=== PATIENT | male | born 1950 | race Caucasian/White ===

== ENCOUNTER 2018-03-07 14:42 | Emergency (ER) | payer MEDICARE ==
[~2018-03-07] VITALS: Ht 177.8 cm; Wt 84.1 kg
[2018-03-07 14:46] VITALS: Ht 177.8 cm; Wt 84.1 kg
[2018-03-07] MEDS ORDERED: DIFLUCAN200 MG PO (15:55)
[2018-03-07] MEDS ORDERED: VISTARIL25 MG PO (15:56)
[2018-03-07] MEDS ORDERED: BP MEDICATION (16:06)
[2018-03-07] MEDS ORDERED: POTASSIUM99 M1 (16:06)
[2018-03-07 16:08] LABS: BASOPHILS 0.2 % (0-2); EOSINOPHILS 2.3 % (0-7); HEMATOCRIT 45.1 % (42.0-54.0); HEMOGLOBIN 16.2 g/dL (13.5-17.5); IMMATURE GRANULOCYTES 0.3 % (0-5); LYMPHOCYTES 17.3 % (15-50); MCH 32.9 pg (26.0-34.0); MCHC 35.9 g/dL (31.0-37.0); MCV 91.7 fL (80.0-100.0); MEAN PLATELET VOLUME 10.3 fL (7.4-10.4); MONOCYTES 8.6 % (2-11); NEUTROPHILS 71.3 % (40-80); PLATELET COUNT 198 10x3/uL (130-400); RBC 4.92 10x6/uL (4.20-6.10); RDW 12.9 % (11.5-14.5); WBC 12.6 10x3/uL (4.8-10.8)
[2018-03-07 16:37] LABS: ALBUMIN 3.3 g/dL (3.4-5.0); ALKALINE PHOSPHATASE 73 U/L (46-116); ALT (SGPT) 36 U/L (10-68); BILIRUBIN - TOTAL 0.71 mg/dL (0.2-1.3); CALC OSMOLALITY 285 mosm/kg (275-300); CALCIUM 9.1 mg/dL (8.5-10.1); CARBON DIOXIDE 26.8 mmol/L (21.0-32.0); CHLORIDE - SERUM 105 mmol/L (98-107); CREATININE - SERUM 0.9 mg/dL (0.6-1.3); GLUCOSE 101 mg/dL (74-106); POTASSIUM - SERUM 3.4 mmol/L (3.5-5.1); SODIUM 143 mmol/L (136-145); UREA NITROGEN 16 mg/dL (7-18); eGFR NON AFRICAN AMERICAN 89 mL/min (90-120)
[2018-03-07 17:13] VITALS: BP 160/77
== END 2018-03-07 17:18 | disposition home or self-care (01) ==
LOC: D.ER 14:42 → EDBD 14:42 → D.ER 17:18
PROVIDERS: Emergency Medicine
DX: B35.4 Tinea corporis (principal); L29.9 Pruritus, unspecified; R21 Rash and other nonspecific skin eruption; I10 Essential (primary) hypertension; F17.200 Nicotine dependence, unspecified, uncomplicated

== ENCOUNTER 2018-07-23 15:28 | Inpatient (IN) | payer MEDICARE ==
[~2018-07-23] VITALS: Ht 180.3 cm; Wt 76.4 kg
[~2018-07-23 15:28] MED LIST: BP MEDICATION; DIFLUCAN200 MG PO; POTASSIUM99 M1; VISTARIL25 MG PO
[2018-07-23 17:05] LABS: HEMATOCRIT 45.4 % (42.0-54.0); HEMOGLOBIN 16.2 g/dL (13.5-17.5); MCH 32.9 pg (26.0-34.0); MCHC 35.7 g/dL (31.0-37.0); MCV 92.3 fL (80.0-100.0); MEAN PLATELET VOLUME 10.6 fL (7.4-10.4); PLATELET COUNT 220 10x3/uL (130-400); RBC 4.92 10x6/uL (4.20-6.10); RDW 12.8 % (11.5-14.5); WBC 20.8 10x3/uL (4.8-10.8)
[2018-07-23 17:12] LABS: ALBUMIN 3.4 g/dL (3.4-5.0); ALKALINE PHOSPHATASE 81 U/L (46-116); ALT (SGPT) 18 U/L (10-68); BILIRUBIN - TOTAL 1.61 mg/dL (0.2-1.3); CALC OSMOLALITY 284 mosm/kg (275-300); CALCIUM 9.9 mg/dL (8.5-10.1); CARBON DIOXIDE 26.7 mmol/L (21.0-32.0); CHLORIDE - SERUM 99 mmol/L (98-107); CREATININE - SERUM 1.5 mg/dL (0.6-1.3); PROTEIN - SERUM 8.1 g/dL (6.4-8.2); SODIUM 136 mmol/L (136-145); UREA NITROGEN 37 mg/dL (7-18); eGFR NON AFRICAN AMERICAN 49 mL/min (90-120)
[2018-07-23 17:15] LABS: AMYLASE - SERUM 21 U/L (25-115); LIPASE 71 U/L (73-393); TROPONIN-I < 0.017 ng/mL (0.000-0.060)
[2018-07-23 17:18] LABS: GLUCOSE 172 mg/dL (74-106)
[2018-07-23 17:19] LABS: APPEARANCE HAZY (CLEAR); BILIRUBIN NEGATIVE (NEGATIVE); COLOR DK YELLOW (YELLOW); GLUCOSE NEGATIVE (NEGATIVE); KETONE NEGATIVE (NEGATIVE); NITRITE POSITIVE (NEGATIVE); PROTEIN 1+ mg/dL (NEGATIVE); UROBILINOGEN NORMAL (NORMAL)
[2018-07-23 17:22] LABS: BACTERIA MANY /hpf (NONE SEEN); RED CELLS - URINE 0-5 /hpf (0-5); WHITE CELLS - URINE 25-50 /hpf (0-5)
[2018-07-23 17:31] VITALS: BP 136/79
[2018-07-23 17:45] LABS: LYMPHOCYTES 5 % (15-50); MONOCYTES 3 % (2-11); NEUTROPHILS 91 % (40-80); PLATELET ESTIMATE NORMAL
[2018-07-23 18:58] VITALS: BP 143/82
[2018-07-23 23:43] VITALS: BP 124/82; BMI 23.4
[2018-07-24] VITALS: BP 101/41
[2018-07-24 04:00] VITALS: BP 86/47
[2018-07-24 06:54] LABS: BASOPHILS 0 % (0-2); EOSINOPHILS 0 % (0-7); HEMATOCRIT 41.1 % (42.0-54.0); HEMOGLOBIN 14.4 g/dL (13.5-17.5); IMMATURE GRANULOCYTES 0.4 % (0-5); LYMPHOCYTES 5.3 % (15-50); MCH 32.7 pg (26.0-34.0); MCV 93.4 fL (80.0-100.0); MONOCYTES 7.3 % (2-11); PLATELET COUNT 176 10x3/uL (130-400); RDW 12.9 % (11.5-14.5); WBC 20.2 10x3/uL (4.8-10.8)
[2018-07-24 07:06] LABS: ALBUMIN 2.6 g/dL (3.4-5.0); ANION GAP 15.9 mmol/L (8-16); BILIRUBIN - TOTAL 1.35 mg/dL (0.2-1.3); CALCIUM 8.8 mg/dL (8.5-10.1); CARBON DIOXIDE 24.2 mmol/L (21.0-32.0); CREATININE - SERUM 1.5 mg/dL (0.6-1.3); POTASSIUM - SERUM 4.1 mmol/L (3.5-5.1); PROTEIN - SERUM 6.9 g/dL (6.4-8.2)
[2018-07-24 08:09] VITALS: BP 124/74
[2018-07-24 12:12] VITALS: BP 130/80
[2018-07-24 16:22] VITALS: BP 150/79
[2018-07-24 20:00] VITALS: BP 129/84
[2018-07-25] VITALS: BP 130/71
[2018-07-25 04:00] VITALS: BP 121/58
[2018-07-25 07:09] LABS: BASOPHILS 0.1 % (0-2); EOSINOPHILS 0.7 % (0-7); HEMATOCRIT 39.3 % (42.0-54.0); HEMOGLOBIN 13.9 g/dL (13.5-17.5); IMMATURE GRANULOCYTES 0.3 % (0-5); MCH 32.9 pg (26.0-34.0); MCHC 35.4 g/dL (31.0-37.0); MCV 93.1 fL (80.0-100.0); MEAN PLATELET VOLUME 10.8 fL (7.4-10.4); NEUTROPHILS 85.9 % (40-80); PLATELET COUNT 161 10x3/uL (130-400); RBC 4.22 10x6/uL (4.20-6.10)
[2018-07-25 07:11] LABS: WBC 11.6 10x3/uL (4.8-10.8)
[2018-07-25 08:34] LABS: ANION GAP 16.5 mmol/L (8-16); CALCIUM 8.7 mg/dL (8.5-10.1); CARBON DIOXIDE 19.9 mmol/L (21.0-32.0)
[2018-07-25 08:49] LABS: CREATININE - SERUM 1.1 mg/dL (0.6-1.3); POTASSIUM - SERUM 3.4 mmol/L (3.5-5.1)
[2018-07-25 09:25] VITALS: BP 150/80
[2018-07-25 12:08] VITALS: Ht 180.3 cm; Wt 76.4 kg
[2018-07-25 13:00] VITALS: BP 141/85
[2018-07-25 18:20] VITALS: BP 161/91
[2018-07-25 20:00] VITALS: BP 144/83
[2018-07-26] VITALS: BP 118/64
[2018-07-26 04:00] VITALS: BP 149/84
[2018-07-26 07:07] LABS: BASOPHILS 0.1 % (0-2); EOSINOPHILS 1.7 % (0-7); HEMATOCRIT 43.5 % (42.0-54.0); HEMOGLOBIN 15.7 g/dL (13.5-17.5); IMMATURE GRANULOCYTES 0.3 % (0-5); LYMPHOCYTES 7.5 % (15-50); MCHC 36.1 g/dL (31.0-37.0); MCV 91.4 fL (80.0-100.0); MEAN PLATELET VOLUME 11.4 fL (7.4-10.4); MONOCYTES 7.5 % (2-11); NEUTROPHILS 82.9 % (40-80); PLATELET COUNT 152 10x3/uL (130-400); RBC 4.76 10x6/uL (4.20-6.10); RDW 12.5 % (11.5-14.5)
[2018-07-26 07:26] LABS: WBC 7.7 10x3/uL (4.8-10.8)
[2018-07-26 07:27] LABS: ANION GAP 15.5 mmol/L (8-16); CALCIUM 9.2 mg/dL (8.5-10.1); CARBON DIOXIDE 21.8 mmol/L (21.0-32.0); CREATININE - SERUM 1.1 mg/dL (0.6-1.3); POTASSIUM - SERUM 3.3 mmol/L (3.5-5.1)
[2018-07-26 08:45] VITALS: BP 125/46
[2018-07-26 13:02] VITALS: BP 130/58
[2018-07-26 16:56] VITALS: BP 151/58
[2018-07-26 20:00] VITALS: BP 161/92
[2018-07-27] VITALS: BP 144/61
[2018-07-27 04:00] VITALS: BP 160/66
[2018-07-27 05:25] LABS: BASOPHILS 0.2 % (0-2); EOSINOPHILS 2.6 % (0-7); HEMATOCRIT 38.7 % (42.0-54.0); HEMOGLOBIN 13.8 g/dL (13.5-17.5); IMMATURE GRANULOCYTES 0.5 % (0-5); LYMPHOCYTES 9.9 % (15-50); MCH 32.3 pg (26.0-34.0); MCHC 35.7 g/dL (31.0-37.0); MCV 90.6 fL (80.0-100.0); MEAN PLATELET VOLUME 11.1 fL (7.4-10.4); MONOCYTES 11.3 % (2-11); NEUTROPHILS 75.5 % (40-80); PLATELET COUNT 155 10x3/uL (130-400); RBC 4.27 10x6/uL (4.20-6.10); RDW 12.4 % (11.5-14.5); WBC 8.2 10x3/uL (4.8-10.8)
[2018-07-27 05:53] LABS: CALC OSMOLALITY 279 mosm/kg (275-300); CALCIUM 8.5 mg/dL (8.5-10.1); CARBON DIOXIDE 23.8 mmol/L (21.0-32.0); CHLORIDE - SERUM 105 mmol/L (98-107); GLUCOSE 80 mg/dL (74-106); SODIUM 140 mmol/L (136-145); UREA NITROGEN 17 mg/dL (7-18); eGFR NON AFRICAN AMERICAN 79 mL/min (90-120)
[2018-07-27 05:54] LABS: POTASSIUM - SERUM 3.3 mmol/L (3.5-5.1)
[2018-07-27 08:23] VITALS: BP 129/81
[2018-07-27 11:58] VITALS: BP 133/73
--- NOTE | 2018-07-27 12:25 | MORECARE ---
CASE MANAGEMENT DISCHARGE SUMMARY PATIENT: SHAKIR ROSALES UNIT: [id number] ADM DATE: 07/23/18 AGE: 68 : 50 SEX: M ROOM/BED: D.2223 AUTHOR: DOREEN PATTERSON PHYSICIAN: REFERRING PHYSICIAN: TONE RICHARDSON MD DATE OF SERVICE: 07/27/18 Discharge Plan Patient Name: SHAKIR ROSALES Facility: [facility]:[place] : 1950 Planned Disposition: Home with Home Health Anticipated Discharge Date: Discharge Date: Expected LOS: Initial Reviewer: [email or web address] Initial Review Date: 07/27/2018 Generated: 07/27/18 1:25 pm DCPIA - Discharge Planning Initial Assessment Updated by [email or web address]: Fela Arriaga on 07/27/18 12:25 pm * Is the patient Alert and Oriented? Yes * How many steps to enter\exit or inside your home? 0/0 * [facility] [place] * [facility]acy [facility] from the [facility] * Preadmission Environment Home Alone * ADLs Partial Dependent * Partial ADLs (Assistance needed) Ambulation * Equipment Bedside Commode Other Shower Chair * Other Equipment Electric wheelchair * List name and contact numbers for known caregivers / representatives who currently or will assist patient after discharge: Donovan Gilliam - ex erqs - [phone] * Verbal permission to speak to the caregivers and representatives has been obtained from the patient. Yes * Community resources currently utilized [facility] Services * Please name any agencies selected above. [place] * Additional services required to return to the preadmission environment? No * Can the patient safely return to the preadmission environment? Yes * Has this patient been hospitalized within the prior 30 days at any hospital? No External Providers External Provider: OTHER-OTHER Next Contact Date: Service Request Date: Service Type: Resolution: Reviewer: Comments: Patient Name: SHAKIR ROSALES Page 64928 at 1225 All edits/amendments must be made on the electronic document DICTATION DATE: 07/27/18 1225 GEOTECHNICAL LABORATORY TECHNICIAN: NILE 07/27/18 1225 RPT#: [id number] DC DATE: STATUS: ADM IN [facility] [address] [place] [address] END OF REPORT
--- NOTE | 2018-07-27 12:33 | MORECARE ---
CASE MANAGEMENT DISCHARGE SUMMARY PATIENT: SHAKIR ROSALES UNIT: [id number] ADM DATE: 07/23/18 AGE: 68 : 50 SEX: M ROOM/BED: D.2223 AUTHOR: YESENIADOC PHYSICIAN: REFERRING PHYSICIAN: TONE RICHARDSON MD DATE OF SERVICE: 07/27/18 Discharge Plan Patient Name: SHAKIR ROSALES Facility: [facility]:[place] : 1950 Planned Disposition: Home with Home Health Anticipated Discharge Date: Discharge Date: Expected LOS: Initial Reviewer: [email or web address] Initial Review Date: 07/27/2018 Generated: 07/27/18 1:32 pm Comments DCP- Discharge Planning Updated by [email or web address]: Fela Arriaga on 07/27/18 11:[address] Patient Name: SHAKIR ROSALES Admission Status: ER Accout number: [id number] Admission Date: 07-23-2018 : 1950 Admission Diagnosis:SEPSIS, UNSPECIFIED ORGANISM Attending: TONE RICHARDSON Current LOS: 4 Anticipated DC Date: Planned Disposition: Home with Home Health Primary Insurance: [employer] MEDICARE ADV Discharge Planning Comments: CM met with patient to complete initial dc planning assessment. CM educated patient on the CM role and verbal consent given by patient to complete assessment. Patient lives alone at [facility]. At discharge patient plans to return and feels this is a safe discharge. CM discussed availability of home health, rehab services, and medical equipment. Patient states he would like to have home health. He states he only uses [facility] as his primary care doctor. I called the [facility] child nutrition manager and spoke to Shirin and informed her of his admission. I also called and spoke to Dayday at the [facility] clinic and clinical faxed to [phone] for home health. He states his ex will take him home on discharge. CM will continue to follow and will assist as needed with dc plans/needs. Marketing Admin: Fela Arriaga DCPIA - Discharge Planning Initial Assessment Updated by [email or web address]: Fela Arriaga on 07/27/18 12:25 pm * Is the patient Alert and Oriented? Yes * How many steps to enter\exit or inside your home? 0/0 * PCP [facility] clinic in [place] * Pharmacy States he gets [facility] medicine from the [facility] * Preadmission Environment Home Alone * ADLs Partial Dependent * Partial ADLs (Assistance needed) Ambulation * Equipment Bedside Commode Other Shower Chair * Other Equipment Electric wheelchair * List name and contact numbers for known caregivers / representatives who currently or will assist patient after discharge: Donovan Gilliam - ex - [phone] * Verbal permission to speak to the caregivers and representatives has been obtained from the patient. Yes * Community resources currently utilized [place] Services * Please name any agencies selected above. [place] * Additional services required to return to the preadmission environment? No * Can the patient safely return to the preadmission environment? Yes * Has this patient been hospitalized within the prior 30 days at any hospital? No Last DP export: 07/27/18 11:25 a Patient Name: SHAKIR ROSALES Page 98842 at 1233 All edits/amendments must be made on the electronic document DICTATION DATE: 07/27/18 1232 CYBER DEFENSE ANALYST: NILE 07/27/18 1232 RPT#: [id number] DC DATE: STATUS: ADM IN [facility] [address] [place] [address] END OF REPORT
--- NOTE | 2018-07-27 15:24 | MORECARE ---
CASE MANAGEMENT DISCHARGE SUMMARY PATIENT: SHAKIR ROSALES UNIT: [id number] ADM DATE: 07/23/18 AGE: 68 : 50 SEX: M ROOM/BED: D.2223 AUTHOR: YESENIADOC PHYSICIAN: REFERRING PHYSICIAN: TONE RICHARDSON MD DATE OF SERVICE: 07/27/18 Discharge Plan Patient Name: SHAKIR ROSALES Facility: [facility]:[place] : 1950 Planned Disposition: Home with Home Health Anticipated Discharge Date: Discharge Date: Expected LOS: Initial Reviewer: [email or web address] Initial Review Date: 07/27/2018 Generated: 07/27/18 4:23 pm Comments DCP- Discharge Planning Updated by [email or web address]: Fela Arriaga on 07/27/18 2:[address] I spoke with Pat with the [facility] clinic and she states that she will need a Rx faxed to her on whatever new meds he will need on discharge. She states she will give clinical to the SOAP MIXER that he sees to see if they can have home health visit him. I spoke with Dr. Berrios and informed him that we would need a hand written Rx for whatever new meds he is going home on to fax to [facility]. CM will continue to follow and assist with discharge planning/needs. DCP- Discharge Planning Updated by [email or web address]: Fela Arriaga on 07/27/18 11:[address] Patient Name: SHAKIR ROSALES Admission Status: ER Accout number: [id number] Admission Date: 07-23-2018 : 1950 Admission Diagnosis:SEPSIS, UNSPECIFIED ORGANISM Attending: TONE RICHARDSON Current LOS: 4 Anticipated DC Date: Planned Disposition: Home with Home Health Primary Insurance: [employer] MEDICARE ADV Discharge Planning Comments: CM met with patient to complete initial dc planning assessment. CM educated patient on the CM role and verbal consent given by patient to complete assessment. Patient lives alone at [facility]. At discharge patient plans to return and feels this is a safe discharge. CM discussed availability of home health, rehab services, and medical equipment. Patient states he would like to have home health. [facility]. I called the [facility] event planning manager and spoke to Shirin and informed her of his admission. I also called and spoke to Dayday at the [facility] clinic and clinical faxed to [phone] for home health. He states his ex will take him home on discharge. CM will continue to follow and will assist as needed with dc plans/needs. Receiving Barn Custodian: Felaivelisse Arriaga DCPIA - Discharge Planning Initial Assessment Updated by [id number]: Fela Arriaga on 07/27/18 12:25 pm * Is the patient Alert and Oriented? Yes * How many steps to enter\exit or inside your home? 0/0 * PCP [facility] clinic in [place] * Pharmacy States he gets [facility] medicine from the [facility] * Preadmission Environment Home Alone * ADLs Partial Dependent * Partial ADLs (Assistance needed) Ambulation * Equipment Bedside Commode Other Shower Chair * Other Equipment Electric wheelchair * List name and contact numbers for known caregivers / representatives who currently or will assist patient after discharge: Donovan Gilliam - ex - [phone] * Verbal permission to speak to the caregivers and representatives has been obtained from the patient. Yes * Community resources currently utilized [facility] Services * Please name any agencies selected above. [place] * Additional services required to return to the preadmission environment? No * Can the patient safely return to the preadmission environment? Yes * Has this patient been hospitalized within the prior 30 days at any hospital? No Last DP export: 07/27/18 11:33 a Patient Name: SHAKIR ROSALES Page 03072 at 1524 All edits/amendments must be made on the electronic document DICTATION DATE: 07/27/18 152 AREA FORESTER: NILE 07/27/18 152 RPT#: [id number] DC DATE: STATUS: ADM IN [facility] [address] [place] [address] END OF REPORT
[2018-07-27 16:43] VITALS: BP 153/86
[2018-07-27 20:00] VITALS: BP 156/79
[2018-07-28] VITALS: BP 145/72
[2018-07-28 04:00] VITALS: BP 164/73
[2018-07-28 06:52] LABS: BASOPHILS 0.2 % (0-2); EOSINOPHILS 2.5 % (0-7); HEMATOCRIT 37.7 % (42.0-54.0); HEMOGLOBIN 13.8 g/dL (13.5-17.5); IMMATURE GRANULOCYTES 0.4 % (0-5); LYMPHOCYTES 11.8 % (15-50); MCH 33.1 pg (26.0-34.0); MCHC 36.6 g/dL (31.0-37.0); MCV 90.4 fL (80.0-100.0); MEAN PLATELET VOLUME 11.4 fL (7.4-10.4); MONOCYTES 8.6 % (2-11); NEUTROPHILS 76.5 % (40-80); RBC 4.17 10x6/uL (4.20-6.10); RDW 12.5 % (11.5-14.5); WBC 9.6 10x3/uL (4.8-10.8)
[2018-07-28 06:54] LABS: CALC OSMOLALITY 282 mosm/kg (275-300); CALCIUM 8.9 mg/dL (8.5-10.1); CARBON DIOXIDE 23.6 mmol/L (21.0-32.0); CHLORIDE - SERUM 106 mmol/L (98-107); CREATININE - SERUM 0.9 mg/dL (0.6-1.3); GLUCOSE 101 mg/dL (74-106); POTASSIUM - SERUM 3.3 mmol/L (3.5-5.1); SODIUM 141 mmol/L (136-145); UREA NITROGEN 18 mg/dL (7-18); eGFR NON AFRICAN AMERICAN 89 mL/min (90-120)
[2018-07-28 07:04] LABS: PLATELET COUNT 189 10x3/uL (130-400)
--- NOTE | 2018-07-28 09:19 | MORECARE ---
CASE MANAGEMENT DISCHARGE SUMMARY PATIENT: SHAKIR ROSALES UNIT: [id number] ADM DATE: 07/23/18 AGE: 68 : 50 SEX: M ROOM/BED: D.2223 AUTHOR: YESENIADOC PHYSICIAN: REFERRING PHYSICIAN: TONE RICHARDSON MD DATE OF SERVICE: 07/28/18 Discharge Plan Patient Name: SHAKIR ROSALES Facility: [facility]:[place] : 1950 Planned Disposition: Home with Home Health Anticipated Discharge Date: Discharge Date: Expected LOS: Initial Reviewer: [email or web address] Initial Review Date: 07/27/2018 Generated: 07/28/18 10:19 am Comments DCP- Discharge Planning Updated by [email or web address]: Fela Arriaga on 07/28/18 8:[address] Received a call from Pat at the DC that "Miss Esquivel" will not order Home Health until the patient is seen in the DC clinic on follow up. CM will continue to follow and assist with discharge planning/needs. DCP- Discharge Planning Updated by [email or web address]: Fela Bart on 07/27/18 2:[address] I spoke with Pat with the [facility] clinic and she states that she will need a Rx faxed to her on whatever new meds he will need on discharge. She states she will give clinical to the PODIATRY ASSISTANT that he sees to see if they can have home health visit him. I spoke with Dr. Berrios and informed him that we would need a hand written Rx for whatever new meds he is going home on to fax to [facility]. CM will continue to follow and assist with discharge planning/needs. DCP- Discharge Planning Updated by [email or web address]: Fela Arriaga on 07/27/18 11:[address] Patient Name: SHAKIR ROSALES Admission Status: ER Accout number: [id number] Admission Date: 07-23-2018 : 1950 Admission Diagnosis:SEPSIS, UNSPECIFIED ORGANISM Attending: TONE RICHARDSON Current LOS: 4 Anticipated DC Date: Planned Disposition: Home with Home Health Primary Insurance: [employer] MEDICARE ADV Discharge Planning Comments: CM met with patient to complete initial dc planning assessment. CM educated patient on the CM role and verbal consent given by patient to complete assessment. Patient lives alone at [facility]. At discharge patient plans to return and feels this is a safe discharge. CM discussed availability of home health, rehab services, and medical equipment. Patient states he would like to have home health. [facility]. I called the VA slate splitter and spoke to Shirin and informed her of his admission. I also called and spoke to Dayday at the [facility] clinic and clinical faxed to [phone] for home health. He states his ex will take him home on discharge. CM will continue to follow and will assist as needed with dc plans/needs. Research Aide: Fela Arriaga DCPIA - Discharge Planning Initial Assessment Updated by [email or web address]: Fela Arriaga on 07/27/18 12:25 pm * Is the patient Alert and Oriented? Yes * How many steps to enter\\exit or inside your home? 0/0 * PCP [facility] clinic in [place] * Pharmacy States he gets [facility] medicine from the [facility] * Preadmission Environment Home Alone * ADLs Partial Dependent * Partial ADLs (Assistance needed) Ambulation * Equipment Bedside Commode Other Shower Chair * Other Equipment Electric wheelchair * List name and contact numbers for known caregivers / representatives who currently or will assist patient after discharge: Donovan Gilliam - ex - [phone] * Verbal permission to speak to the caregivers and representatives has been obtained from the patient. Yes * Community resources currently utilized [facility] Services * Please name any agencies selected above. [place] * Additional services required to return to the preadmission environment? No * Can the patient safely return to the preadmission environment? Yes * Has this patient been hospitalized within the prior 30 days at any hospital? No Last DP export: 07/27/18 2:23 p Patient Name: SHAKIR ROSALES Page 12284 at 0919 All edits/amendments must be made on the electronic document DICTATION DATE: 07/28/18917 INSURANCE VERIFY REP: NILE 07/28/18917 RPT#: [id number] DC DATE: STATUS: ADM IN [facility] [address] [place] [address] END OF REPORT
[2018-07-28 09:44] VITALS: BP 150/69
[2018-07-28 12:00] VITALS: BP 132/75
[2018-07-28 18:35] VITALS: BP 150/73
[2018-07-28 20:00] VITALS: BP 155/75
[2018-07-29 05:48] LABS: BASOPHILS 0.4 % (0-2); EOSINOPHILS 4.7 % (0-7); HEMATOCRIT 37.4 % (42.0-54.0); HEMOGLOBIN 13.4 g/dL (13.5-17.5); IMMATURE GRANULOCYTES 0.6 % (0-5); LYMPHOCYTES 20.7 % (15-50); MCH 32.4 pg (26.0-34.0); MCHC 35.8 g/dL (31.0-37.0); MCV 90.6 fL (80.0-100.0); MEAN PLATELET VOLUME 10.7 fL (7.4-10.4); NEUTROPHILS 65.6 % (40-80); PLATELET COUNT 196 10x3/uL (130-400); RBC 4.13 10x6/uL (4.20-6.10); RDW 12.6 % (11.5-14.5); WBC 8.5 10x3/uL (4.8-10.8)
[2018-07-29 06:44] LABS: CALC OSMOLALITY 285 mosm/kg (275-300); CALCIUM 8.6 mg/dL (8.5-10.1); CARBON DIOXIDE 22.3 mmol/L (21.0-32.0); CHLORIDE - SERUM 108 mmol/L (98-107); CREATININE - SERUM 0.9 mg/dL (0.6-1.3); GLUCOSE 96 mg/dL (74-106); POTASSIUM - SERUM 3.4 mmol/L (3.5-5.1); SODIUM 142 mmol/L (136-145); UREA NITROGEN 21 mg/dL (7-18); eGFR NON AFRICAN AMERICAN 89 mL/min (90-120)
[2018-07-29 09:38] VITALS: BP 161/85
[2018-07-29] MEDS ORDERED: OMNICEF300 MG PO (11:50)
--- NOTE | 2018-07-29 12:35 | MORECARE ---
CASE MANAGEMENT DISCHARGE SUMMARY PATIENT: SHAKIR ROSALES UNIT: [id number] ADM DATE: 07/23/18 AGE: 68 : 50 SEX: M ROOM/BED: D.2223 AUTHOR: YESENIA,DOC PHYSICIAN: REFERRING PHYSICIAN: TONE RICHARDSON MD DATE OF SERVICE: 07/29/18 Discharge Plan Patient Name: SHAKIR ROSALES Facility: [facility]:[place] : 1950 Planned Disposition: Home with Home Health Anticipated Discharge Date: Discharge Date: Expected LOS: Initial Reviewer: [email or web address] Initial Review Date: 07/27/2018 Generated: 07/29/18 1:35 pm Comments DCP- Discharge Planning Updated by [email or web address]: Fela Bart on 07/29/18 11:[address] Received the Rx for Cefdinir for home and copy faxed to the VA. I called the [facility] and spoke to Meryl and told her that I have faxed his RX and anticipating discharge today. I also faxed updated progress notes. Meryl states she will have the care team return my call if the Rx is approved. I priced the med at [place] and it will cost 20 dollars and 49 cents. I have emailed Elsa Shen for approval if [place] does not approve med. CM will continue to follow and assist with discharge planning/needs. DCP- Discharge Planning Updated by [email or web address]: Fela Bart on 07/28/18 8:[address] Received a call from Pat at the [facility] that "Miss Esquivel" will not order Home Health until the patient is seen in the [facility] clinic on follow up. CM will continue to follow and assist with discharge planning/needs. DCP- Discharge Planning Updated by [email or web address]: Feal Astorgajose on 07/27/18 2:[address] I spoke with Pat with the [facility] clinic and she states that she will need a Rx faxed to her on whatever new meds he will need on discharge. She states she will give clinical to the DIMENSIONAL ENGINEER that he sees to see if they can have home health visit him. I spoke with Dr. Berrios and informed him that we would need a hand written Rx for whatever new meds he is going home on to fax to [place]. CM will continue to follow and assist with discharge planning/needs. DCP- Discharge Planning Updated by [email or web address]: Fela Arriaga on 07/27/18 11:[address] Patient Name: SHAKIR ROSALES Admission Status: ER Accout number: [id number] Admission Date: 07-23-2018 : 1950 Admission Diagnosis:SEPSIS, UNSPECIFIED ORGANISM Attending: TONE RICHARDSON Current LOS: 4 Anticipated DC Date: Planned Disposition: Home with Home Health Primary Insurance: [employer] MEDICARE ADV Discharge Planning Comments: CM met with patient to complete initial dc planning assessment. CM educated patient on the CM role and verbal consent given by patient to complete assessment. Patient lives alone at [facility]. At discharge patient plans to return and feels this is a safe discharge. CM discussed availability of home health, rehab services, and medical equipment. Patient states he would like to have home health. He [facility]. I called the [facility] senior android software engineer and spoke to Shirin and informed her of his admission. I also called and spoke to Dayday at the [facility] clinic and clinical faxed to [phone] for home health. He states his ex will take him home on discharge. CM will continue to follow and will assist as needed with dc plans/needs. Guitar Teacher: Fela Arriaga DCPIA - Discharge Planning Initial Assessment Updated by [email or web address]: Fela Arriaga on 07/27/18 12:25 pm * Is the patient Alert and Oriented? Yes * How many steps to enter\\exit or inside your home? 0/0 * PCP [facility] clinic in [place] * Pharmacy States he gets all medicine from the [facility] * Preadmission Environment Home Alone * ADLs Partial Dependent * Partial ADLs (Assistance needed) Ambulation * Equipment Bedside Commode Other Shower Chair * Other Equipment Electric wheelchair * List name and contact numbers for known caregivers / representatives who currently or will assist patient after discharge: Donovan Gilliam - ex - [phone] * Verbal permission to speak to the caregivers and representatives has been obtained from the patient. Yes * Community resources currently utilized [facility] Services * Please name any agencies selected above. [place] * Additional services required to return to the preadmission environment? No * Can the patient safely return to the preadmission environment? Yes * Has this patient been hospitalized within the prior 30 days at any hospital? No Last DP export: 07/28/18 8:19 a Patient Name: SHAKIR ROSALES Page 80157 at 1235 All edits/amendments must be made on the electronic document DICTATION DATE: 07/29/18 1235 TECHNICAL SUPPORT COORDINATOR: NILE 07/29/18 1235 RPT#: [id number] DC DATE: STATUS: ADM IN [facility] [address] [place] [address] END OF REPORT
[2018-07-29] MEDS ORDERED: COLACE100 MG PO (12:57)
[2018-07-29] MEDS ORDERED: FLORAJEN3 CAPS460 MG PO (12:57)
[2018-07-29] MEDS ORDERED: FLOMAX0.4 MG PO (12:58)
[2018-07-29] MEDS ORDERED: Nicoderm [PBKC] TRANSDERM (12:59)
[2018-07-29 14:11] VITALS: BP 176/82
--- NOTE | 2018-07-29 14:17 | MORECARE ---
CASE MANAGEMENT DISCHARGE SUMMARY PATIENT: SHAKIR ROSALES UNIT: [id number] ADM DATE: 07/23/18 AGE: 68 : 50 SEX: M ROOM/BED: D.2223 AUTHOR: YESENIA,DOC PHYSICIAN: REFERRING PHYSICIAN: TONE RICHARDSON MD DATE OF SERVICE: 07/29/18 Discharge Plan Patient Name: SHAKIR ROSALES Facility: [facility]:[place] : 1950 Planned Disposition: Home with Home Health Anticipated Discharge Date: Discharge Date: Expected LOS: Initial Reviewer: [email or web address] Initial Review Date: 07/27/2018 Generated: 07/29/18 3:17 pm Comments DCP- Discharge Planning Updated by [email or web address]: Fela Bart on 07/29/18 1:[address] Met with patient and he has a male and female visitor in the room that will be taking him home. I had called and spoke to Meryl again at the CO in [place] and all clinical and dc med list have been faxed to the CO in [place]. Elsa Shen has approved case management to pay for his Omnicef. I have called [facility] in [place] on [address] and the 2 visitors are going to go get it now. I demonstrated to the patient how to empty his hammond catheter and he has demonstrated it back to me. [facility] and I asked him to bring his discharge paperwork and Rx with him. The male visitor in the room states he will take him to his appointment tomorrow. Home today. CM will continue to follow and assist with discharge planning/needs. DCP- Discharge Planning Updated by [email or web address]: Fela Bart on 07/29/18 11:[address] Received the Rx for Cefdinir for home and copy faxed to the [facility]. I called the [facility] and spoke to Meryl and told her that I have faxed his RX and anticipating discharge today. I also faxed updated progress notes. Meryl states she will have the care team return my call if the Rx is approved. I priced the med at [place] and it will cost 20 dollars and 49 cents. I have emailed Elsa Shen for approval if [place] does not approve med. CM will continue to follow and assist with discharge planning/needs. DCP- Discharge Planning Updated by [email or web address]: Fela Arriaga on 07/28/18 8:[address] Received a call from Pat at the CO that "Miss Esquivel" will not order Home Health until the [facility] is [facility] on follow [facility]. CM will continue to follow and assist with discharge planning/needs. DCP- Discharge Planning Updated by [email or web address]: Fela Arriaga on 07/27/18 2:[address] I spoke with Pat with the [facility] clinic and she states that she will need a Rx faxed to her on whatever new meds he will need on discharge. She states she will give clinical to the SWITCHBOX ASSEMBLER that he sees to see if they can have home health visit him. I spoke with Dr. Berrios and informed him that we would need a hand written Rx for whatever new meds he is going home on to fax to [facility]. CM will continue to follow and assist with discharge planning/needs. DCP- Discharge Planning Updated by [id number]: Fela Astorgajose on 07/27/18 11:[address] Patient Name: SHAKIR ROSALES Admission Status: ER Accout number: [id number] Admission Date: 07-23-2018 : 1950 Admission Diagnosis:SEPSIS, UNSPECIFIED ORGANISM Attending: TONE RICHARDSON Current LOS: 4 Anticipated DC Date: Planned Disposition: Home with Home Health Primary Insurance: [employer] MEDICARE ADV Discharge Planning Comments: CM met with patient to complete initial dc planning assessment. CM educated patient on the CM role and verbal consent given by patient to complete assessment. Patient lives alone at [facility]. At discharge patient plans to return and feels this is a safe discharge. CM discussed availability of home health, rehab services, and medical equipment. Patient states he would like to have home health. [facility]. I called the VA liquid hydrogen plant operator and spoke to Shirin and informed her of his admission. I also called and spoke to Dayday at the [facility] clinic and clinical faxed to [phone] for home health. He states his ex will take him home on discharge. CM will continue to follow and will assist as needed with dc plans/needs. Quantitative Consultant: Fela Bart DCPIA - Discharge Planning Initial Assessment Updated by [email or web address]: Fela Arriaga on 07/27/18 12:25 pm * Is the patient Alert and Oriented? Yes * How many steps to enter\\exit or inside your home? 0/0 * PCP [facility] clinic in [place] * [facility]acy [facility] * Preadmission Environment Home Alone * ADLs Partial Dependent * Partial ADLs (Assistance needed) Ambulation * Equipment Bedside Commode Other Shower Chair * Other Equipment Electric wheelchair * List name and contact numbers for known caregivers / representatives who currently or will assist patient after discharge: Donovan Gilliam - ex jckw - [phone] * Verbal permission to speak to the caregivers and representatives has been obtained from the patient. Yes * Community resources currently utilized [place] Services * Please name any agencies selected above. [place] * Additional services required to return to the preadmission environment? No * Can the patient safely return to the preadmission environment? Yes * Has this patient been hospitalized within the prior 30 days at any hospital? No Coverage Notice Reviewer: [email or web address] - Fela Arriaga Notice Issued Date-Time: 07/29/2018 13:39 Notice Type: IM Discharge Notice Notice Delivered To: Patient Relationship to Patient: Self Master Tax Advisor Name: Delivery Method: HAND - Hand Delivered Josseline Days: Prior Verbal Notification: Recipient Understood Notice: Yes Recipient Signature: Yes Med Rec Note Co-signed by Attending: Coverage Notice Comment: IMM explained, signed, given, copy placed in MR Last DP export: 07/29/18 11:35 a Patient Name: SHAKIR ROSALES Page 82029 at 1417 All edits/amendments must be made on the electronic document DICTATION DATE: 07/29/18 1416 BROKE BEATER: NILE 07/29/18 1416 RPT#: [id number] DC DATE: STATUS: ADM IN [facility] [address] [place] [address] END OF REPORT
--- NOTE | 2018-07-30 11:48 | MORECARE ---
CASE MANAGEMENT DISCHARGE SUMMARY PATIENT: SHAKIR ROSALES UNIT: [id number] ADM DATE: 07/23/18 AGE: 68 : 50 SEX: M ROOM/BED: D.2223 AUTHOR: YESENIA,DOC PHYSICIAN: REFERRING PHYSICIAN: TONE RICHARDSON MD DATE OF SERVICE: 07/30/18 Discharge Plan Patient Name: SHAKIR ROSALES Facility: [facility]:[place] : 1950 Planned Disposition: Home with Home Health Anticipated Discharge Date: Discharge Date: 07/29/2018 Expected LOS: 0 Initial Reviewer: [email or web address] Initial Review Date: 07/27/2018 Generated: 07/30/18 12:47 pm Comments DCP- Discharge Planning Updated by [email or web address]: Fela Arriaga on 07/29/18 1:[address] Met with patient and he has a male and female visitor in the room that will be taking him home. I had called and spoke to [facility] [place] and all clinical and dc med list have been fax[facility] to the [facility] [place]. Elsa Shen has approved case management to pay for his Omnicef. I have called [facility] pharmacy in [place] on [address] and the 2 visitors are going to go get it now. I demonstrated to the patient how to empty his hammond catheter and he has demonstrated it back to me. [facility] and I asked him to bring his discharge paperwork and Rx with him. The male visitor in the room states he will take him to his appointment tomorrow. Home today. CM will continue to follow and assist with discharge planning/needs. DCP- Discharge Planning Updated by [email or web address]: Fela Arriaga on 07/29/18 11:[address] Received the Rx for Cefdinir for home and [facility] and spoke [facility] Mer[facility] and told her that I have faxed his RX and anticipating discharge today. I also faxed updated progress notes. Meryl states she will have the care team return my call if the Rx is approved. I priced the med at [facility] and it will cost 20 dollars and 49 cents. I have emailed Elsa Shen for approval if [facility] does not [facility] med. CM will continue to follow and assist with discharge planning/needs. DCP- Discharge Planning Updated by [id number]: Fela Arriaga on 07/28/18 8:[address] Received a call [facility] that "[facility]qu[facility]" will not order Home Health until [facility]. CM will continue to follow and assist with discharge planning/needs. DCP- Discharge Planning Updated by [email or web address]: Fela Arriaga on 07/27/18 2:[address] I spoke with Pat with the [facility] clinic and she states that she will need a Rx faxed to her on whatever new meds he will need on discharge. She states she will give clinical to the [facility] ATTEND[facility] that he sees to see if they can have home health visit him. I spoke with Dr. Berrios and informed him that we would need a hand written Rx for whatever new meds he is going home [facility] to [facility] to [facility]. CM will continue to follow and assist with discharge planning/needs. DCP- Discharge Planning Updated by [email or web address]: Fela Arriaga on 07/27/18 11:[address] Patient Name: SHAKIR ROSALES Admission Status: ER Accout number: [id number] Admission Date: 07-23-2018 : 1950 Admission Diagnosis:SEPSIS, UNSPECIFIED ORGANISM Attending: TONE RICHARDSON Current LOS: 4 Anticipated DC Date: Planned Disposition: Home with Home Health Primary Insurance: [employer] ADV Discharge Planning Comments: CM met with patient to complete initial dc planning assessment. CM educated patient on the CM role and verbal consent given by patient to complete assessment. Patient lives alone at [facility]. At discharge patient plans to return and feels this is a safe discharge. CM discussed availability of home health, rehab services, and medical equipment. Patient states he would like to have home health. [facility] and [facility] Shirin and informed her of his admission. I also called and spoke to Dayday at the [facility] clinic and clinical faxed to [phone] for home health. He states his ex will take him home on discharge. CM will continue to follow and will assist as needed with dc plans/needs. Offset Pressman: Fela Arriaga DCPIA - Discharge Planning Initial Assessment Updated by [email or web address]: Fela Arriaga on 07/27/18 12:25 pm * Is the patient Alert and Oriented? Yes * How many steps to enter\\exit or inside your home? 0/0 * [facility] [place] * [facility] * Preadmission Environment Home Alone * ADLs Partial Dependent * Partial ADLs (Assistance needed) Ambulation * Equipment Bedside Commode Other Shower Chair * Other Equipment Electric wheelchair * List name and contact numbers for known caregivers / representatives who currently or will assist patient after discharge: Donovan Gilliam - ex qmzg - [phone] * Verbal permission to speak to the caregivers and representatives has been obtained from the patient. Yes * Community resources currently utilized [facility] * Please name any agencies selected above. [place] * Additional services required to return to the preadmission environment? No * Can the patient safely return to the preadmission environment? Yes * Has this patient been hospitalized within the prior 30 days at any hospital? No Coverage Notice Reviewer: [id number] - Fela Arriaga Notice Issued Date-Time: 07/29/2018 13:39 Notice Type: IM Discharge Notice Notice Delivered To: Patient Relationship to Patient: Self Electronics Maintenance Technician Name: Delivery Method: HAND - Hand Delivered Josseline Days: Prior Verbal Notification: Recipient Understood Notice: Yes Recipient Signature: Yes Med Rec Note Co-signed by Attending: Coverage Notice Comment: IMM explained, signed, given, copy placed in MR Last DP export: 07/29/18 1:17 p Patient Name: SHAKIR ROSALES Page [id number] at 1148 All edits/amendments must be made on the electronic document DICTATION DATE: 07/30/18 1147 MASTER LAY OUT SPECIALIST: NILE 07/30/18 1147 RPT#: [id number] DC DATE:07/29/18 STATUS: DIS IN [address] [facility] [place] [address] END OF REPORT
== END 2018-07-29 16:47 | disposition home or self-care (01) | DRG 872 ==
LOC: D.ER 15:28 → D.MS 20:19
PROVIDERS: Emergency Medicine; Family Medicine; ADMIT Internal Medicine Nephrology; ATTEND Internal Medicine Nephrology
DX: A41.9 Sepsis, unspecified organism (principal); N17.9 Acute kidney failure, unspecified; F17.213 Nicotine dependence, cigarettes, with withdrawal; N13.8 Other obstructive and reflux uropathy; N11.1 Chronic obstructive pyelonephritis; Z16.30 Resistance to unspecified antimicrobial drugs; I10 Essential (primary) hypertension; E11.9 Type 2 diabetes mellitus without complications; N40.1 Benign prostatic hyperplasia with lower urinary tract symptoms